=== PATIENT | male | born 1970 | race Caucasian/White ===

== ENCOUNTER → 2019-01-28 15:48 | Outpatient (CLI) | payer OTHER, SELFPAY | PROVIDERS: Family Provider Chiropractor; PCP Family Medicine | DX: Z23 Encounter for immunization (principal) | CPT/HCPCS: 90471; 90686 ==

== ENCOUNTER → 2020-01-18 13:52 | Outpatient (ROUT) | payer OTHER, SELFPAY ==
[2020-01-18 14:44] LABS: COVID19 -Nasal RAPID Negative (Negative)
== END ==
PROVIDERS: Family Provider Chiropractor; PCP Family Medicine
DX: Z11.59 Encounter for screening for other viral diseases (principal)
CPT/HCPCS: 87635

== ENCOUNTER → 2020-01-28 10:50 | Outpatient (CLI) | payer OTHER, SELFPAY ==
[2020-01-28 14:25] LABS: COVID19 -Nasal RAPID Negative (Negative)
== END ==
PROVIDERS: Family Provider Chiropractor; PCP Family Medicine; Referring Provider Anesthesiology; Visit Provider Anesthesiology
DX: Z11.59 Encounter for screening for other viral diseases (principal)
CPT/HCPCS: 87635

== ENCOUNTER → 2020-02-01 03:46 | Outpatient (CLI) | payer OTHER, SELFPAY | PROVIDERS: Family Provider Chiropractor; PCP Family Medicine; Referring Provider Internal Medicine; Visit Provider Internal Medicine | DX: Z23 Encounter for immunization (principal) | CPT/HCPCS: 90471; 90686 ==

== ENCOUNTER → 2021-02-19 08:30 | Outpatient (CLI) | payer OTHER, SELFPAY ==
[2021-02-19 12:49] LABS: COVID19 -Nasal RAPID Negative (Negative)
== END ==
PROVIDERS: Family Provider Chiropractor; PCP Family Medicine; Visit Provider Physician Assistant
DX: Z20.822 Contact with and (suspected) exposure to COVID-19 (principal); Z01.812 Encounter for preprocedural laboratory examination
CPT/HCPCS: 87635

== ENCOUNTER 2021-02-20 11:08 | Day surgery (SDC) | payer OTHER, SELFPAY ==
[2021-02-20] VITALS (7 sets, daily range): BP systolic 108–139; BP diastolic 69–85; PULSE 57–66; RESP 12–20; TEMP 36.1–36.4; O2SAT 98–100; BMI 22.2
--- NOTE | 2021-02-20 | PATH_ITS ---
[facility] Accession Number: [id number] . 01 Material submitted: . PART A: esophagus, E-G Junction - GE JUNCTION BIOPSY PART B: esophagus - MID ESOPHAGUS BIOPSY PART C: colon - RECTAL/SIGMOID COLON POLYP . 02 Diagnosis: A. GE Junction Biopsy: Squamous mucosa with increased intraepithelial eosinophils (up to 35 per high powered field). See comment. Negative for intestinal metaplasia. Negative for dysplasia and malignancy. . B. Mid Esophagus Biopsy: Squamous epithelium and squamous mucosa with increased eosinophils (up to 40 per high powered field). See comment. Rare, probably goblet cells present in a disrupted region; insufficient evidence for Fair's esophagus due to crush artifact. Negative for dysplasia and malignancy. . C. Rectal/Sigmoid Colon Polyp: Hyperplastic polyp. [facility] 02/23/2021 1619 Local . 02 Comment: Parts A and B: In the proper clinical setting, the histopathologic appearance would support a clinical impression of eosinophilic esophagitis. The differential diagnosis includes drug reaction, gastroesophageal reflux, and food allergies. . . As part of routine quality assurance analyst, part B of this case was also reviewed by Dr. Mcclendon, who agrees with the interpretation. . 02 Electronically signed: . Autumn Fay MD, Pathologist NPI- [id number] . 01 Gross description: . Part A: GE JUNCTION BIOPSY: Received in formalin are 2 fragment(s) of esquivel, soft tissue measuring 0.4 x 0.3 x 0.1 cm to 0.2 x 0.1 x 0.1 cm submitted entirely in 1 cassette(s) Part B: MID ESOPHAGUS BIOPSY: Received in formalin are multiple fragment(s) of esquivel, soft tissue measuring 0.9 x 0.4 x 0.1 cm in aggregate submitted entirely in 1 cassette(s) Part C: RECTAL/SIGMOID COLON POLYP: Received in formalin is 1 fragment(s) of esquivel, soft tissue measuring 0.4 x 0.4 x 0.3 cm submitted entirely in 1 cassette(s) /[facility] 02/21/2021 1418 Local . 02 Microscopic: . B. An alcian blue stain was performed to evaluate for intestinal metaplasia and is rare, probable goblet cells are present in a small, disrupted region. The control stain showed appropriate reactivity. . 02 Pathologist provided ICD-10: Z12.11, K63.5 . 02 CPT . 991800, 933170, 844359, [id number] Performed at: 01 [facility] [address] [place] [address], [place], [place] [id number] MD Kobi Burton MD Phone: [phone] Performed at: 02 [facility] [address] [place], [place] [id number] MD Lorin Mcclendon MD Phone: [phone]
[2021-02-20] MEDS: SODIUM CHLORIDE 0.9% 1,000 ML 84 ML IV (11:46)
--- NOTE | 2021-02-20 11:51 | PM.HP.1 ---
History of Present Illness History of Present Illness Date Patient Seen: 02/20/21 Time Patient Seen: 11:51 Chief complaint: SDC Narrative: Patient reports diagnosis of eosinophilic esophagitis from 3-4 years ago. Denies major problems with reflux but still has periodic challenges with solid food dysphagia. He also presents for colon cancer screening. Patient History Family & Social History Social History: household members spouse Tobacco & Substance use: Smoking Status Smoker, status unknown alcohol intake current alcohol intake frequency a few times a week Substance Use Type does not use Meds Home Medications and Allergies Allergies Allergy/AdvReac Type Severity Reaction Status Date / Time Penicillins [PENICILLINS] AdvReac Intermediate SWELLING Verified 02/20/21 11:22 Review of Systems Review of Systems ROS: Yes All systems reviewed with the patient and are negative except as otherwise documented Exam Vital Signs (past 8 hours): - 02/20/21 11:27 Temperature 97.6 F Pulse Rate 64 Respiratory Rate 20 Blood Pressure 139/85 Pulse Oximetry 100 Oxygen Delivery Method Room Air Const General: cooperative and comfortable Orientation: alert HENMT Head: normocephalic Ears: external ears normal Nose: external nose normal Face and sinus: normal facial exam Eyes General: appearance normal, both eyes and all related structures Neck Neck: normal visual inspection Chest Chest: normal inspection of the chest Resp Effort & Inspection: normal respiratory effort Cardio Rate: regular rate Heart Sounds: no murmurs GI Inspection: normal to inspection Skin General: no rashes or lesions noted and No jaundice Neuro General: patient alert and moves all extremities Cognition: normal cognition Speech: speech normal Extrem General: no pedal edema Psych Appearance: grossly normal Assessment & Plan Assessment & Plan narrative: Eosinophilic esophagitis history with ongoing intermittent dysphagia. The colon cancer screening is additionally indicated. EGD and colonoscopy is therefore pursued today. Time Spent With Patient Critical Care time: I spent a total of [] minutes of critical care time on this patient's care today; this time is exclusive of procedural time.
--- NOTE | 2021-02-20 11:54 | PM.PREOP ---
Pre-operative Note COVID-19 COVID-19 status: Negative Result date/Date tested (Pos, Neg/Pending): 02/19/21 Interval Note History & Physical reviewed/Exam performed by Physician: Yes Changes to H&P: No H&P completed within 30 days and has changed as indicated here:: Today ASA Class (for procedural sedation): I
--- NOTE | 2021-02-20 12:47 | P.OP.EGD&C_ITS ---
Operative Date/Time/Diagnoses Date of procedure: 02/20/21 Time of procedure: 12:47 Pre-op diagnosis: Eosinophilic esophagitis and dysphagia indicated for colon cancer screening. Post-op diagnosis: same Procedure & Clinicians Study performed: EGD with biopsies and colonoscopy with hot snare polypectomy Same procedure as scheduled: Yes Indications: Eosinophilic esophagitis and dysphagia indicated for colon cancer screening. Surgeon: Rojelio Nguyễn Procedure Notes SCOAP/Timeout: Done Procedure in detail: After the risks and benefits were explained, written and verbal informed consent was obtained. The patient was brought into the procedure room and placed into the left lateral decubitus position. Please see nurse scalp treatment specialist notes for sedation details. The scope was introduced into the mouth through the bite block and advanced under direct visualization to the 2nd portion of the duodenum. The scope was slowly withdrawn carefully examining the mucosa for any defects or lesions. Retroflexed views were accomplished in the stomach. The stomach was decompressed, the scope was then removed from the patient who tolerated the procedure well. Patient was then turned around a digital rectal examination accomplished no significant pathology appreciated the scope was introduced into the rectum and advanced to the cecum as identified by the appendiceal orifice and ileocecal valve. The scope was slowly withdrawn to carefully examine the mucosa for any defects or lesions. Multiple direct views were made through the dentate line for exclusion of pathology the colon was decompressed scope removed from the pa tient who tolerated the procedure well. Adult colonoscope Bowel prep adequate Scope withdrawal time: 7 minutes Sedation minutes: 27 Complications: none Impression: 1. Duodenum: this was visually normal from the bulb through to the 2nd portion 2. Stomach: No ulcers no mass lesions no outlet obstruction. No overt pathology appreciated throughout the stomach including retroflexed views of the LES. 3. Esophagus: The squamocolumnar junction correlated with the top of the gastric folds. The GE junction was at roughly 40 cm from the incisors. There was evidence of LA grade A erosive esophagitis. There was intermittently also evident a very subtle nonobstructing Schatzki's ring and this was targeted for disruptive biopsies. In the midesophagus there was evidence of linear furrows and circumferential rings consistent with eosinophilic esophagitis. A separate set of mid esophageal biopsies were taken for evaluation of eosinophil count. 4. Colon: There was a small perhaps 5-6 mm sessile polyp in the sigmoid removed with hot snare EGD. This suggested that it might be hyperplastic but was removed on the off chance that it could be a serrated adenoma. No additional pathology was identified throughout the remainder of the colon off. Endoscopic diagnosis 1. LA grade a erosive esophagitis 2. Probable eosinophilic esophagitis 3. Colon polyp Post-procedure Plan for aftercare: 1. Await histopathology 2. If the polyp is confirmed hyperplastic only, repeat colonoscopy will be suggested for 10 years time. 3. Consider a more proactive anti-reflux approach. There was no high-grade s tricture or stenosis and I therefore suspect that the esophagitis could be related to the intermittent challenges with swallowing. 4. Consider formal allergy assessment. Disposition: PACU
--- NOTE | 2021-02-20 12:55 | SUR.PHASEI ---
Received to PACU after EGD/colonoscopy with sedation. Report received from MEL Soriano and MEL Santacruz.
== END 2021-02-20 13:29 | disposition home or self-care (01) ==
PROVIDERS: Family Provider Chiropractor; PCP Family Medicine; Referring Provider Internal Medicine Gastroenterology; Visit Provider Internal Medicine Gastroenterology
PROC: 0DJ08ZZ Inspection of Upper Intestinal Tract, Via Natural or Artificial Opening Endoscopic (ICD-10-PCS; CPT 43235; principal; 2021-02-20 12:30)
PROC: 0DJD8ZZ Inspection of Lower Intestinal Tract, Via Natural or Artificial Opening Endoscopic (ICD-10-PCS; CPT 45378; 2021-02-20 12:30)
DX: Z12.11 Encounter for screening for malignant neoplasm of colon (principal); R13.10 Dysphagia, unspecified; K22.2 Esophageal obstruction; K20.80 Other esophagitis without bleeding; K62.1 Rectal polyp
CPT/HCPCS: 45385; 43239; J2704

== ENCOUNTER → 2022-06-15 08:30 | Outpatient (CLI) | payer OTHER, SELFPAY ==
[2022-06-15 09:00] LABS: Add Manual Diff / Slide Review NO; Basophils Absolute Auto 100 /uL (0-100); Basophils Percent Auto 1.2 % (0-2); Eosinophils Absolute Auto 300 /uL (0-450); Eosinophils Percent Auto 6.1 % (2-4); Hematocrit 42.6 % (41-53); Hemoglobin 14.3 g/dL (13.5-17.5); Lymphocytes Absolute Auto 1600 /uL (1100-4500); Lymphocytes Percent Auto 33.2 % (25-40); Mean Corpuscular HGB Conc 33.6 % (30-36); Mean Corpuscular Hemoglobin 31.1 PG (26-34); Mean Corpuscular Volume 92.5 fL (80-100); Monocytes Absolute Auto 400 /uL (0-900); Monocytes Percent Auto 7.8 % (3-14); Neutrophils Absolute Auto 2500 /uL (1500-7000); Neutrophils Percent Auto 51.7 % (50-75); Platelet Count 283 X10^3/uL (150-400); White Blood Cell Count 4.9 X10^3/uL (4.5-11.0)
[2022-06-15 09:10] LABS: Appearance Urine UA CLEAR; Bilirubin Urine UA NEGATIVE (NEGATIVE); Color Urine UA YELLOW; Glucose Urine UA NEGATIVE (Negative); Ketones Urine UA NEGATIVE (NEGATIVE); Leukocyte Esterase Urine UA NEGATIVE (NEGATIVE); Nitrite Urine UA NEGATIVE (Negative); Occult Blood Urine UA NEGATIVE (Negative); Protein Urine UA NEGATIVE (Negative); Urobilinogen Urine UA 0.2 E.U./dL (0.2); pH Urine UA 7.5 (4.5-8.0)
[2022-06-15 09:15] LABS: UR Morphine/Opiate cutoff 300 Negative (Negative); Ur Creatinine 100 (Normal); Ur Specific Gravity 1.025 (Normal); Urine Amphetamines Negative (Negative); Urine Barbiturates Negative (Negative); Urine Benzodiazepines Negative (Negative); Urine Cocaine Negative (Negative); Urine MDMA Negative (Negative); Urine Methadone Negative (Negative); Urine Methamphetamines Negative (Negative); Urine Oxycodone Negative (Negative); Urine Phencyclidine Negative (Negative); Urine Tetrahydrocannabinol Negative (Negative); Urine Tricyclic Antidepressant Negative (Negative); Urine pH 7 (Normal)
[2022-06-15 09:18] LABS: Cholesterol 203 mg/dL (140-199); Ethanol (ETOH) < 10 mg/dL; Glucose 104 mg/dL (70-100); HDL Cholesterol 77 mg/dL (40-60); LDL Cholesterol Calculated 111 mg/dL (<100); Triglycerides 75 mg/dL (35-150)
--- NOTE | 2022-06-15 10:12 | DI.RAD.S_ITS ---
PROCEDURE: XR CHEST 2V INDICATIONS: pre employment physical TECHNIQUE: 2 views of the chest were acquired. COMPARISON: None. FINDINGS: Surgical changes and devices: None. Lungs and pleura: Lungs are clear. No pleural effusions or pneumothorax. Mediastinum: Mediastinal contours are normal. Heart size is normal. Bones and chest wall: No suspicious bony abnormalities. Soft tissues appear unremarkable. IMPRESSION: Normal chest x-ray Dictated by: Dakota Nicole M.D. on 06/15/2022 at 10:50 Approved by: Dakota Nicole M.D. on 06/15/2022 at 10:51
[2022-06-17 16:29] LABS: HIV 1 & 2 Ab/Ag 4th Gen Combo NEGATIVE (NEGATIVE)
[2022-06-18 13:37] LABS: Glucose-6-Phosphate Dehydrogen 343 (127-427)
== END ==
LOC: LAB 08:41 → RAD 10:12
PROVIDERS: Family Provider Chiropractor; PCP Family Medicine; Referring Provider Nurse Practitioner Family; Visit Provider Nurse Practitioner Family
DX: Z02.1 Encounter for pre-employment examination (principal)
CPT/HCPCS: 36415; 71046; 80061; 80305; 80320; 81003; 82947; 82955; 85025; 85041; 86900; 86901; 87389